=== PATIENT | male | born 1955 | race Caucasian/White ===

== ENCOUNTER → 2017-05-17 | Day surgery (SDC) | payer OTHER ==
[~2017-05-17] MED LIST: ACEBUTOLOL HCL200 MG PO; ASPIRIN LOW DOS81 MG PO; ATORVASTATIN CA20 MG PO; COQ-10100 MG; DULERA 100 MCG/13 GM INH; FENTANYL CITRATE/PF 100MCG/2 ML INJ ONE; FINASTERIDE5 MG PO; FLUTI; GLUCAGON FOR INJ 1 MG VIAL ONE; HYOSCYAMINE SULFATE 0.5 MG/ML AMP ONE; LIDOCAINE HCL 2% LOCAL INJ 5 ML SDV VIAL INJ ONE; MIDAZOLAM HCL 2 MG/2 ML VIAL ONE; PROPOFOL IV EMULSION 10 MG/ML 50 ML VIAL ONE; SLO-NIACIN500 MG PO; SLOW NIACIN; WELCHOL625 MG PO; Z.0.AVODART0.5 MG PO; Z.0.FLOMAX0.4 MG PO; Z.0.PROTONIX40 MG PO; ZETIA10 MG PO; [UNRECOGNIZED DRUG - OTHER]
--- OUTSIDE RECORDS SUMMARY | 2017-05-17 07:10 | XMS REPORT | Clinical Summary ---
Author Author [facility] Address Unknown Phone Unavailable Care Team Providers Care Wood Patternmaker Apprentice Name Role Phone Gerhard Henson PCP Allergies No Known Allergies Current Medications Prescription Sig. Disp. Refills Start End Date Status Date acebutolol (SECTRAL) 200 Take 200 mg by mouth 06/16/19 Active MG capsule daily. 16 ZETIA 10 mg tablet Take 10 mg by mouth 08/20/19 Active daily. 16 meloxicam (MOBIC) 15 MG Take 15 mg by mouth once 0 07/31/19 Active tablet daily. 16 pantoprazole (PROTONIX) Take 40 mg by mouth Active 40 MG EC tablet daily. colesevelam (WELCHOL) 625 Take 1,875 mg by mouth 2 Active mg tablet (two) times a day with meals. HYDROcodone-acetaminophen 10/16/19 Active (NORCO) 5-325 mg per 16 tablet finasteride (PROSCAR) 5 09/19/19 Active mg tablet 16 tamsulosin (FLOMAX) 0.4 08/20/19 Active mg capsule,extended 16 release 24hr Active Problems No known active problems Family History Medical History Relation Name Comments Lung disease Father Alzheimer's disease Mother Hypertension Mother Skin cancer Mother Thyroid disease Mother Hypertension Sister Thyroid disease Sister Relation Name Status Comments Father Mother Alive Sister Alive Social History Tobacco Use Types Packs/Day Years Used Date Never Smoker Smokeless Tobacco: Never Used Alcohol Use Drinks/Week oz/Week Comments No Sex Assigned at Date Recorded Not on file Last Filed Vital Signs Not on file Plan of Treatment Health Maintenance Due Date Last Done Comments COLONOSCOPY 02/21/2004 ZOSTER VACCINE 2014 INFLUENZA VACCINE 10/13/2016 Results Not on fileafter 05/16/2016 Insurance Payer Benefit Subscriber ID Type Phone Address Plan / Group AETNA AETNA xxxxxxxxxx HMO HMO,POS,EP O, [facility]
[2017-05-17 12:05] LABS: ALANINE AMINOTRANSFERASE 17 IU/L (0-55); ALBUMIN 3.7 g/dL (3.5-5.0); ALKALINE PHOSPHATASE 80 IU/L (40-150); ANION GAP 12.9 mmol/L (8-16); BLOOD UREA NITROGEN 12 mg/dL (7-26); BUN/CREATININE RATIO 11 (6-25); CALCIUM 9.1 mg/dL (8.4-10.2); CARBON DIOXIDE 26 mmol/L (22-29); CHLORIDE 104 mmol/L (98-107); CREATININE, SERUM 1.09 mg/dL (0.72-1.25); EST GLOMERULAR FILTRATION RATE > 60 ML/MIN (60-); GLUCOSE 119 mg/dL (74-118); POTASSIUM 3.9 mmol/L (3.5-5.1); SODIUM 139 mmol/L (136-145)
[2017-05-17 12:11] LABS: WBC,FECAL (FECAL LACTOFERRIN) NEGATIVE (NEGATIVE)
--- NOTE | 2017-05-17 16:28 | Operative Report ---
DATE OF PROCEDURE: May 17, 2017 REFERRING PHYSICIAN: Dr. Sanjay Henson. PROCEDURES PERFORMED 1. Esophagogastroduodenoscopy with polypectomy and biopsies. 2. Colonoscopy with polypectomy and biopsies. INDICATIONS FOR EGD: Nausea, indigestion, bloating. INDICATIONS FOR COLONOSCOPY: Colorectal cancer screening, history of colon polyps, chronic diarrhea. MEDICATIONS: Patient was done under MAC. Please see anesthesiologist's note. PROCEDURE: With the patient in left lateral decubitus position, flexible fiberoptic Olympus gastroscope was introduced into the esophagus under direct visualization without any difficulty. There were some prominent esophageal subepithelial veins versus grade 1 esophageal varices. The mucosa overlying the distal esophagus revealed some patchy erythema. Minute tongues of velvety red mucosa were noted to extend proximally from the GE junction. Biopsies were obtained to rule out Gamboa's. The scope was then advanced with ease into the stomach. Mucosa overlying the antrum and the body revealed some patchy erythema and [id number] edema and biopsies were obtained and sent to stain for H. pylori. A prepyloric fold was noted to be partially obstructing the pyloric channel and that was resected per snare electrocautery. The pylorus was then traversed with ease and the scope was advanced all the way to the second portion of the duodenum. Biopsies were obtained from the proximal second portion to rule out sprue considering patient's history of chronic diarrhea. Mucosa overlying the duodenal bulb appeared to be within normal limits. The scope was then withdrawn back into the stomach and retroflexed and mucosa overlying the fundus and the cardia appeared to be within normal limits. The scope was then straightened out. The stomach was decompressed. The scope was subsequently withdrawn. Patient tolerated the procedure well. IMPRESSION 1. Distal esophagitis. 2. Grade 1 esophageal varices versus prominent esophageal veins. 3. Rule out Gamboa's esophagus. 4. Gastritis biopsied. Biopsies sent to stain for H. pylori. 5. Prepyloric fold partially obstructing the pyloric channel, removed per snare electrocautery. 6. Rule out sprue. PLAN: Followup histology. Initiate Protonix 40 mg 1 p.o. q.a.m. a.c. Patient was then turned around. After adequate lubrication of the anal canal, a flexible fiberoptic Olympus colonoscope was inserted into the rectum with ease and advanced all the way to the cecum. The cecum was suboptimally visualized due to the excessive looping of the scope proximally. Mucosa overlying the ascending, transverse, descending, and sigmoid colon revealed some patchy areas of erythema, low-grade edema, and random biopsies were obtained. Diverticulosis was noted to involve the distal descending and the sigmoid colon. Two polyps were hot biopsied from the sigmoid. Three polyps were hot biopsied from the rectum. The scope was then retroflexed into the distal rectum. Small internal hemorrhoids were noted, none of which was actively bleeding. The scope was then straightened out and was subsequently withdrawn after securing an adequate stool specimen that was sent for the appropriate stool studies. Patient tolerated the procedure well. IMPRESSION 1. Cecum suboptimally visualized due to excessive looping of scope proximally. 2. Colitis, patchy, mild. Random biopsies obtained. 3. Diverticulosis. 4. Sigmoid colon polyps times 2, hot biopsied. 5. Rectal polyps times 3, hot biopsied. 6. Internal hemorrhoids, none actively bleeding. PLAN: Followup histology. Followup stool studies. Start Bentyl 10 mg 1 p.o. t.i.d.. BSL #3 DS 1 p.o. daily. Patient will need a colonoscopy in 3 years. Job#: [id number] PAT cc:Dr. Sanjay Henson
[2017-05-18 09:57] LABS: C DIFFICILE TOXIN A&B AMP PROB NEGATIVE (NEGATIVE)
== END | disposition home or self-care (01) ==
LOC: OR 07:08
PROVIDERS: ATTEND Internal Medicine Gastroenterology
DX: K52.9 Noninfective gastroenteritis and colitis, unspecified (principal); K63.5 Polyp of colon; K62.1 Rectal polyp; K29.70 Gastritis, unspecified, without bleeding; K20.8 Other esophagitis; K44.9 Diaphragmatic hernia without obstruction or gangrene; K21.9 Gastro-esophageal reflux disease without esophagitis; K31.89 Other diseases of stomach and duodenum; K57.30 Diverticulosis of large intestine without perforation or abscess without bleeding; K64.8 Other hemorrhoids; I25.10 Atherosclerotic heart disease of native coronary artery without angina pectoris; R00.1 Bradycardia, unspecified; I45.10 Unspecified right bundle-branch block; G47.33 Obstructive sleep apnea (adult) (pediatric); E78.5 Hyperlipidemia, unspecified; N39.0 Urinary tract infection, site not specified; Z01.810 Encounter for preprocedural cardiovascular examination; Z79.82 Long term (current) use of aspirin; Z68.36 Body mass index [BMI] 36.0-36.9, adult
CPT/HCPCS: 36415; 43239; 43251; 45380; 45384; 80053; 83630; 83993; 87045; 87177; 87328; 87493; 93005; J1610; J1980; J2001; J2250; 45378

== ENCOUNTER → 2019-06-05 | Day surgery (SDC) | payer OTHER ==
[2019-06-01 11:13] LABS: BASOPHILS # (AUTO) 0.1 (0.0-0.1); BASOPHILS % 0.9 % (0.0-1.0); EOSINOPHILS # (AUTO) 0.4 (0.0-0.4); EOSINOPHILS % 3.9 % (0.0-6.0); HEMATOCRIT 43.1 % (38.2-49.6); HEMOGLOBIN 14.4 g/dL (14.0-18.0); LYMPHOCYTES # (AUTO) 1.9 (1.0-3.2); LYMPHOCYTES % 19.1 % (18.0-39.1); MEAN CORPUSCULAR HEMOGLOBIN 29.5 pg (28-32); MEAN CORPUSCULAR HGB CONC 33.4 g/dL (31-35); MEAN CORPUSCULAR VOLUME 88.3 fL (81-99); MONOCYTES % 9.9 % (4.4-11.3); NEUTROPHILS # (AUTO) 6.4 (2.1-6.9); NEUTROPHILS % 65.7 % (38.7-80.0); PLATELET COUNT 197 x10e3/uL (140-360); RED BLOOD COUNT 4.88 x10e6/uL (4.3-5.7)
[2019-06-01 11:34] LABS: ALANINE AMINOTRANSFERASE 17 IU/L (0-55); ALBUMIN 3.8 g/dL (3.5-5.0); ALBUMIN/GLOBULIN RATIO 1.1 (0.8-2.0); ALKALINE PHOSPHATASE 87 IU/L (40-150); ANION GAP 9.2 mmol/L (8-16); BLOOD UREA NITROGEN 17 mg/dL (7-26); BUN/CREATININE RATIO 15 (6-25); CALCIUM 9.5 mg/dL (8.4-10.2); CARBON DIOXIDE 27 mmol/L (22-29); CHLORIDE 108 mmol/L (98-107); CREATININE, SERUM 1.12 mg/dL (0.72-1.25); EST GLOMERULAR FILTRATION RATE > 60 ML/MIN (60-); GLUCOSE 101 mg/dL (74-118); POTASSIUM 4.2 mmol/L (3.5-5.1); SODIUM 140 mmol/L (136-145)
[2019-06-05] VITALS (24 sets, daily range): BP systolic 101–125; BP diastolic 54–74
[~2019-06-05] VITALS: Ht 185.4 cm; Wt 111.6 kg
[~2019-06-05] MED LIST changes: +ALPRAZOLAM 0.5 MG TAB ONE; +ASPIRIN 325 MG TAB ONE; +BIVALRIUDIN 250 MG/VIAL VIAL IV ONE; -COQ-10100 MG; +COQ-10100 MG PO; +DIPHENHYDRAMINE HCL 25 MG CAP ONE; +EFFIENT10 MG PO; -GLUCAGON FOR INJ 1 MG VIAL ONE; +HEPARIN SOD (PORCINE) 1000 UNIT/ML 30ML ONE; +HEPARIN SOD/SOD CHLORIDE 2,000 ML ONE; -HYOSCYAMINE SULFATE 0.5 MG/ML AMP ONE; +IOPAMIDOL 370 MG/ML 200 ML INFUS..BTL INJ ONE; +LIDOCAINE HCL 2% LOCAL 20 ML VIAL ONE; -LIDOCAINE HCL 2% LOCAL INJ 5 ML SDV VIAL INJ ONE; +NITROGLYCERIN/D5W 200 MCG/ML 250 ML ONE; +PRASUGREL 10 MG TAB ONE; -PROPOFOL IV EMULSION 10 MG/ML 50 ML VIAL ONE; +SODIUM CHLORIDE 0.9% 1000ML 1,000 ML ONE; +SODIUM CHLORIDE 0.9% ONE; +VERAPAMIL HCL 2.5 MG/ML 2 ML VIAL ONE
--- NOTE | 2019-06-05 09:14 | Operative Report ---
DATE OF PROCEDURE: 06/05/2019 SURGEON: Lele Rhodes MD INDICATION: Coronary artery disease, abnormal stress test with angina. PROCEDURES PERFORMED: 1. Left heart catheterization, selective coronary angiography. 2. Stent placement to the mid right coronary artery. 3. Deployment of right wrist TR band. 4. Conscious sedation administration and hemodynamic monitoring by registered nurse in scientific laboratory supervisor with supervision by physician. Total time 65 minutes. COMPLICATIONS: None. BLOOD LOSS: Minimal. RECOMMENDATIONS: Dual antiplatelet therapy for at least 6 months, staged intervention on the left anterior descending artery. DESCRIPTION OF PROCEDURE: Access obtained in the right radial artery. A 5-Dominican sheath was placed. The patient received Angiomax for anticoagulation. Left main, mild disease. Left anterior descending artery, distal 80% stenosis, 2.5 mm vessel. Circumflex was small with mild disease. Right coronary artery, mid 80% stenosis, dominant vessel. LV end-diastolic pressure of 10. No gradient across the aortic valve on pullback. A decision was made to intervene on the right coronary artery. The right coronary artery was cannulated using an IR 3.5 5-Dominican guiding catheter. Short Runthrough wire was advanced for support. Primary stent Synergy 3.5 x 20 mm deployed at 18 atmospheres without complications, less than 10% residual stenosis, LEXI-3 flow. Right coronary balloon wire guide removed. TR band applied. The patient discharged home same day. Lele Rhodes MD KSB/MODL /[id number]
== END | disposition home or self-care (01) ==
LOC: CATH LAB 06:21
PROVIDERS: ATTEND Internal Medicine Interventional Cardiology
DX: I25.118 Atherosclerotic heart disease of native coronary artery with other forms of angina pectoris (principal); R94.39 Abnormal result of other cardiovascular function study; Z01.812 Encounter for preprocedural laboratory examination
CPT/HCPCS: 36415; 80053; 85025; 92928; 93458; C1769; C1874; J0583; J1644; J2001; J2250; J3010; J7030; Q9967; 99152; 99153

== ENCOUNTER → 2019-06-14 | Day surgery (SDC) | payer OTHER ==
--- NOTE | 2019-06-12 14:15 | NUR ---
Checked patient temperature via skin probe 98.0F. Patient denies being out of the country in the last 14 days. Patient denies being around anyone who has been out of the country int he last 14 days. Patient denies being around anyone who has been exposed or diagnosed with calderon virus in the last 14 days. Patient denies fever, cough, or shortness of breath in the last 14 days.
[2019-06-12 15:19] LABS: BASOPHILS # (AUTO) 0.1 (0.0-0.1); EOSINOPHILS # (AUTO) 0.4 (0.0-0.4); HEMATOCRIT 43.7 % (38.2-49.6); HEMOGLOBIN 14.7 g/dL (14.0-18.0); LYMPHOCYTES # (AUTO) 1.8 (1.0-3.2); LYMPHOCYTES % 19.4 % (18.0-39.1); MEAN CORPUSCULAR HEMOGLOBIN 29.8 pg (28-32); MEAN CORPUSCULAR HGB CONC 33.6 g/dL (31-35); MEAN CORPUSCULAR VOLUME 88.5 fL (81-99); MONOCYTES # (AUTO) 0.7 (0.2-0.8); MONOCYTES % 7.9 % (4.4-11.3); NEUTROPHILS # (AUTO) 6.2 (2.1-6.9); NEUTROPHILS % 67.5 % (38.7-80.0); PLATELET COUNT 199 x10e3/uL (140-360); RED BLOOD COUNT 4.94 x10e6/uL (4.3-5.7)
[2019-06-12 15:38] LABS: ALBUMIN/GLOBULIN RATIO 1.2 (0.8-2.0); ANION GAP 9.1 mmol/L (8-16); CALCIUM 9.2 mg/dL (8.4-10.2); CREATININE, SERUM 1.23 mg/dL (0.72-1.25); POTASSIUM 4.1 mmol/L (3.5-5.1)
[2019-06-14] VITALS (8 sets, daily range): BP systolic 100–115; BP diastolic 50–88
[~2019-06-14] VITALS: Ht 188 cm; Wt 112.5 kg
[~2019-06-14] MED LIST changes: -NITROGLYCERIN/D5W 200 MCG/ML 250 ML ONE; +SODIUM CHLORIDE 0.9% 50ML 50 ML ONE; -SODIUM CHLORIDE 0.9% ONE
--- NOTE | 2019-06-14 15:00 | NUR ---
1500pm RECEIVING NOTE DEPENDENCY CASE MANAGER RECOVERY DEPT............................................................... Bedside report received from COY Vance. Identifierx2. Alert oriented and appropriate, PERRLA, respirations even and unlabored to room air. Pulses x4 extremities equal and strong. Pedal pulses PT/DP X4 and marked. Cap fill brisk < 3 sec. Rt TR band site. TR band down 1600pm. Skin warm and dry integrity appears D/I. IV 20g to left hand at 100cchr, presents healthy w/o s/s of infiltration or complaint. Abdomen soft and supple. pt offered toileting, denies need to urinate or defecate. No personal affects with patient. Family at bedside. Pt and family verbalizes understanding of POC. Currently w/o complaint of pain or need. ds/rn
--- NOTE | 2019-06-14 15:04 | Operative Report ---
DATE OF PROCEDURE: 06/14/2019 SURGEON: Lele Rhodes MD INDICATIONS: 1. Coronary artery disease, unstable angina, staged intervention. 2. Peripheral arterial disease, claudication. PROCEDURES PERFORMED: 1. Left heart catheterization, selective coronary angiography. 2. Stent placed in the distal left anterior descending artery. 3. Bilateral third-order catheter placement from the right radial artery to bilateral femoral arteries. 4. Abdominal aortogram. 5. Bilateral lower extremity unilateral leg angiograms. 6. Deployment of right wrist TR band. 7. Conscious sedation administration, hemodynamic and neurologic monitoring in recovery by supervisor cytogenetic laboratory RN with supervision by MD for 65 minutes. COMPLICATIONS: None. BLOOD LOSS: Minimal. RECOMMENDATIONS: Dual antiplatelet therapy for at least 6 months. DESCRIPTION OF PROCEDURE: Access obtained in the right radial artery. A 6-Nepali sheath was placed. The patient received Angiomax for anticoagulation. The left main was cannulated using an XB 3.5, 6-Nepali guiding catheter. Short Runthrough wire was advanced across the lesion in the left anterior descending artery with 70%. Primary stent 2.25 x 12 mm deployed at 13 atmospheres. Excellent end result, less than 10% residual stenosis, LEXI-3 flow. No complications. Pigtail catheter was then advanced from the right radial artery to the abdominal aorta. Abdominal aortogram demonstrated no disease in the abdominal aorta without evidence of aneurysm formation or plaque. The catheter then advanced in each bilateral femoral arteries and unilateral extremity angiogram on both sides was performed without evidence of peripheral arterial disease. Three-vessel runoff. No complications. No indication for any intervention. Right wrist TR band applied. The patient discharged home same day. Lele Rhodes MD KSB/MODL /[id number]
--- NOTE | 2019-06-14 16:00 | NUR ---
1600p RADIAL COMPRESSION REMOVAL NOTE: Initial Cuff volume 12 cc 1600p -2cc Removed No hematoma/bleeding noted with normal neurovascular function. 1615p -5cc Removed No hematoma/ bleeding noted with normal neurovascular function. 1630p -5cc Removed No hematoma/bleeding noted with normal neurovascular function. Air removal completed. Stasis achieved sterile 2x2,Tegaderm, Coban dressing No hematoma, bleeding noted with normal neurovascular function. Wrist splint in place. Pt instructed on POC. Ds/Rn
--- NOTE | 2019-06-14 17:55 | NUR ---
1755pm WET COTTON FEEDER RECOVERY DISCHARGE NURSING NOTE Pt meets DC criteria.Rt radial site assessed for s/s of complication and presence of hematoma. Skin warm, dry, no discolor, and pulses present. IV removed from left hand. Distal tip appears intact. VS WNL. Pt denies pain, sob, or need at this time. Family at BS. Review of discharge paperwork and follow up instructions.Has work release letter. verbalized understanding. Pt to wheelchair and transported to front of hospital. Transferred to private vehicle under own strength w/o incident with DC paperwork in hand. - kati/rn
== END | disposition home or self-care (01) ==
LOC: CATH LAB 11:23
PROVIDERS: ATTEND Internal Medicine Interventional Cardiology
DX: I25.110 Atherosclerotic heart disease of native coronary artery with unstable angina pectoris (principal); I70.213 Atherosclerosis of native arteries of extremities with intermittent claudication, bilateral legs; Z01.812 Encounter for preprocedural laboratory examination; Z79.82 Long term (current) use of aspirin
CPT/HCPCS: 36247; 36415; 75625; 75716; 80053; 85025; 92928; C1769 ×2; C1874; C1887; J0583; J1644; J2001; J2250; J3010; J7030; Q9967; 93454; 99152; 99153

== ENCOUNTER 2019-08-15 16:58 | Emergency (ER) | payer OTHER ==
[~2019-08-15] VITALS: Ht 188 cm; Wt 112.5 kg
[~2019-08-15 16:58] MED LIST changes: -ALPRAZOLAM 0.5 MG TAB ONE; -ASPIRIN 325 MG TAB ONE; -BIVALRIUDIN 250 MG/VIAL VIAL IV ONE; -DIPHENHYDRAMINE HCL 25 MG CAP ONE; -FENTANYL CITRATE/PF 100MCG/2 ML INJ ONE; -HEPARIN SOD (PORCINE) 1000 UNIT/ML 30ML ONE; -HEPARIN SOD/SOD CHLORIDE 2,000 ML ONE; -IOPAMIDOL 370 MG/ML 200 ML INFUS..BTL INJ ONE; -LIDOCAINE HCL 2% LOCAL 20 ML VIAL ONE; -MIDAZOLAM HCL 2 MG/2 ML VIAL ONE; -PRASUGREL 10 MG TAB ONE; -SODIUM CHLORIDE 0.9% 1000ML 1,000 ML ONE; -SODIUM CHLORIDE 0.9% 50ML 50 ML ONE; -VERAPAMIL HCL 2.5 MG/ML 2 ML VIAL ONE
--- OUTSIDE RECORDS SUMMARY | 2019-08-15 17:01 | XMS REPORT | Clinical Summary ---
Author Author [facility] Address Unknown Phone Unavailable Care Team Providers Care Procurement Analyst Name Role Phone Joe Henson DO PCP Allergies No Known Allergies Medications End Date Status Medication Sig Dispensed Refills Start Date Active acebutolol (SECTRAL) 200 Take 200 mg 0 06/15 /201 MG capsule by mouth 6 daily. Active ZETIA 10 mg tablet Take 10 mg by 0 mouth daily. 6 Active meloxicam (MOBIC) 15 MG Take 15 mg by 0 tablet mouth once 6 daily. Active pantoprazole (PROTONIX) Take 40 mg by 0 40 MG EC tablet mouth daily. Active colesevelam (WELCHOL) 625 Take 1,875 mg 0 mg tablet by mouth 2 (two) times a day with meals. Active HYDROcodone-acetaminophen 0 (NORCO) 5-325 mg per 6 tablet Active finasteride (PROSCAR) 5 0 09/18/ mg tablet 6 Active tamsulosin (FLOMAX) 0.4 0 08/19/ mg capsule,extended 6 release 24hr Active Problems No known active problems Family History Medical History Relation Name Comments Lung disease Father Alzheimer's disease Mother Hypertension Mother Skin cancer Mother Thyroid disease Mother Hypertension Sister Thyroid disease Sister Relation Name Status Comments Father Mother Alive Sister Alive Social History Date Tobacco Use Types Packs/Day Years Used Never Smoker Smokeless Tobacco: Never Used Drinks/Week oz/Week Comments Alcohol Use No Sex Assigned at Date Recorded Not on file Industry Job Start Date Occupation Not on file Not on file Not on file Travel End Travel History Travel Start No recent travel history available. Last Filed Vital Signs Not on file Plan of Treatment Health Maintenance Due Date Last Done Comments COLONOSCOPY SCREENING 02/21/2004 SHINGLES VACCINES (#1) 02/21/2004 65+ PNEUMOCOCCAL VACCINE 2019 (1 of 2 - PCV13) INFLUENZA VACCINE 10/14/2019 Results Not on fileafter 08/14/2018 Insurance Type Payer Benefit Subscriber ID Effective Phone Address Plan / Dates Group HMO AETNA AETNA xxxxxxxxxx 2009-P HMO,POS,EP resent O, [employer]/[facility] Advance Directives For more information, please contact: [phone] Patient Brine Well Operator Explanation Type Date Recorded Advance Directives, Living Will and Medical Power of Paper Baling Machine Operator
[2019-08-15] MEDS ORDERED: TETANUS/DIPHTHERIA TOX ADULT 0.5 ML SYR IM ONE (17:30)
[2019-08-15] MEDS ORDERED: LIDOCAINE HCL 1% LOCAL INJ 20 ML VIAL INJ ONE (17:30)
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
== END 2019-08-15 19:18 | disposition home or self-care (01) ==
LOC: ER 16:58
DX: S61.412A Laceration without foreign body of left hand, initial encounter (principal); W27.0XXA Contact with workbench tool, initial encounter; E78.5 Hyperlipidemia, unspecified; K21.9 Gastro-esophageal reflux disease without esophagitis
CPT/HCPCS: 12001; 90471; 90714; 99282; J2001

== ENCOUNTER → 2020-10-18 | Day surgery (SDC) | payer OTHER ==
[2020-10-15 10:03] LABS: BASOPHILS # (AUTO) 0.1 (0.0-0.1); EOSINOPHILS # (AUTO) 0.3 (0.0-0.4); EOSINOPHILS % 2.7 % (0.0-6.0); HEMATOCRIT 41.9 % (38.2-49.6); HEMOGLOBIN 13.3 g/dL (14.0-18.0); LYMPHOCYTES # (AUTO) 1.8 (1.0-3.2); LYMPHOCYTES % 15.7 % (18.0-39.1); MEAN CORPUSCULAR HGB CONC 31.7 g/dL (31-35); MEAN CORPUSCULAR VOLUME 91.3 fL (81-99); MONOCYTES # (AUTO) 1.1 (0.2-0.8); MONOCYTES % 9.9 % (4.4-11.3); NEUTROPHILS # (AUTO) 7.8 (2.1-6.9); NEUTROPHILS % 70.1 % (38.7-80.0); PLATELET COUNT 164 x10e3/uL (140-360); RED BLOOD COUNT 4.59 x10e6/uL (4.3-5.7); RED CELL DISTRIBUTION WIDTH 13.2 % (11.7-14.4)
[~2020-10-18] MED LIST changes: +FENTANYL CITRATE/PF 100MCG/2 ML INJ ONE; +GLUCAGON FOR INJ 1 MG VIAL ONE; +HYOSCYAMINE SULFATE 0.5 MG/ML INJ ONE; +MIDAZOLAM HCL 2 MG/2 ML VIAL ONE; +PROPOFOL IV EMULSION 10 MG/ML 20 ML VIAL ONE; +SUPER BEETS PO; +TURMERIC PO
[2020-10-18 16:30] VITALS: BP 135/70
== END | disposition home or self-care (01) ==
LOC: OR 09:36
PROVIDERS: ATTEND Internal Medicine Gastroenterology
DX: K29.70 Gastritis, unspecified, without bleeding (principal); D12.2 Benign neoplasm of ascending colon; D12.4 Benign neoplasm of descending colon; D12.3 Benign neoplasm of transverse colon; D12.5 Benign neoplasm of sigmoid colon; K57.30 Diverticulosis of large intestine without perforation or abscess without bleeding; K44.9 Diaphragmatic hernia without obstruction or gangrene; Z86.010 Personal history of colon polyps; E78.00 Pure hypercholesterolemia, unspecified; K21.9 Gastro-esophageal reflux disease without esophagitis; N40.0 Benign prostatic hyperplasia without lower urinary tract symptoms; Z90.49 Acquired absence of other specified parts of digestive tract; Z95.5 Presence of coronary angioplasty implant and graft; Z68.36 Body mass index [BMI] 36.0-36.9, adult; K59.09 Other constipation; G47.33 Obstructive sleep apnea (adult) (pediatric); I25.10 Atherosclerotic heart disease of native coronary artery without angina pectoris; Z01.810 Encounter for preprocedural cardiovascular examination; Z01.812 Encounter for preprocedural laboratory examination; Z20.822 Contact with and (suspected) exposure to COVID-19; Z87.440 Personal history of urinary (tract) infections
CPT/HCPCS: 36415; 45380; 45384; 85025; 93005; J1610; J1980; J2250; J2704; J3010; U0002; 45378